=== PATIENT | male | born 1985 | race Caucasian/White ===

== ENCOUNTER 2017-01-27 14:07 | Emergency (ER) | payer OTHER ==
[2017-01-27] MEDS ORDERED: KETOROLAC 15 MG/1 ML SDV IVP ONE (14:21)
[2017-01-27] MEDS ORDERED: LIDOCAINE 5% 1 EA PATCH TD ONE (14:21)
[2017-01-27] MEDS ORDERED: ACETAMINOPHEN 500 MG TAB PO ONE (14:21)
--- NOTE | 2017-01-27 14:25 | EDPHY ---
H & P Stated Complaint: Low back injury, low back pain and down L leg Time Seen by Provider: 01/27/17 14:14 HPI/ROS: CHIEF COMPLAINT: Acute low back pain HISTORY OF PRESENT ILLNESS: 31-year-old male with prior history of multilevel lumbar fusion the teenager secondary to traumatic football injury, drove to the ER at complaining of acute low back pain with left lower extremity radiculopathy after he was lifting a heavy auger at work and felt immediate bilateral paraspinous lumbar back pain with radiculopathy in the left lower extremity as well as a "pop" sensation. No incontinence. No paresthesia. No saddle anesthesia. No no footdrop. No direct trauma or fall. No abdominal pain. PRIMARY CARE PROVIDER: Worker's compensation REVIEW OF SYSTEMS: A ten point review of systems was performed and is negative with the exception of the items mentioned in the HPI PAST MEDICAL & SURGICAL HISTORY: multilevel lumbar fusion as a teenager secondary to traumatic football injury SOCIAL HISTORY: works in [employer] PHYSICAL EXAM (Prior to examination, patient consented to physical exam, hands were washed and my usual and customary physical exam procedures followed) 1) GENERAL: Well-developed, well-nourished, alert and oriented. Appears uncomfortable . 2) HEAD: Normocephalic, atraumatic 3) HEENT: Pupils equal, round, reactive to light bilaterally. Sclera anicteric. 4) NECK: Full range of motion, no meningeal signs. 5) LUNGS: Clear auscultation bilaterally, no wheezes, no rhonchi, no retractions. 6) HEART: Regular rate and rhythm, no murmur, no heave, no gallop. 7) ABDOMEN: No guarding, no rebound, no focal tenderness, negative McBurney's, negative Garcia's, negative Rovsing's, negative peritoneal sign, 8) MUSCULOSKELETAL: Moving all extremities, no focal areas of tenderness, no obvious trauma. No peripheral edema or discoloration. 9) BACK: tender to palpation bilateral paraspinous paraspinous muscle. No CVA tenderness, no midline vertebral tenderness, no fluctuance, no step-off, no obvious trauma, no visual or palpable abnormality. Patella, Achilles reflexes intact to bilateral strength 5/5 10) SKIN: No rash, no petechiae. DIFFERENTIAL DIAGNOSIS: In no particular order, including but not limited to, fracture, sprain/strain, cauda equina, spinal infectious etiology. - Personal History Current Tetanus/Diphtheria Vaccine: Unsure Current Tetanus Diphtheria and Acellular Pertussis (TDAP): Unsure - Medical/Surgical History Hx Asthma: No Hx Chronic Respiratory Disease: No Hx Diabetes: No Hx Cardiac Disease: No Hx Renal Disease: No Hx Cirrhosis: No Hx Alcoholism: No Hx HIV/AIDS: No Hx Splenectomy or Spleen Trauma: No Other PMH: Low back surgery and fusion - Social History Smoking Status: Never smoked Constitutional: Initial Vital Signs Temperature (C) 36.6 C 01/27/17 14:10 Heart Rate 72 01/27/17 14:10 Respiratory Rate 16 01/27/17 14:10 Blood Pressure 119/66 01/27/17 14:10 O2 Sat (%) 92 01/27/17 14:10 O2 Delivery Mode Room Air Allergies/Adverse Reactions: No Known Allergies Allergy (Verified 01/27/17 14:16) Home Medications: Medication Instructions Recorded Cyclobenzaprine [Flexeril 10 MG 10 mg PO TID #15 tab 01/27/17 (RX)] methylPREDNISolone [Medrol Dose 4 mg PO DAILY #1 ea 01/27/17 [facility]] Medical Decision Making - Diagnostics Imaging Results: Imaging Impressions Lumbar Spine X-Ray 01/27/17 14:25 Impression: 1. Pedicle screws at L4, L5, and S1 segments without radiopaque paraspinal tri. 2. Mild disk space narrowing at L4-L5 along with facet hypertrophy at L5-S1. Images reviewed by myself ED Course/Re-evaluation: MEDICAL DECISION MAKING 2:24 p.m.: This patient appears uncomfortable. He drove himself to the ER and is planning on driving upon leaving as he has to make a flight this evening. Plan will be nonnarcotic nonsedating medication, re-evaluation. Will obtain x- ray given his history of hardware in his lumbar spine and sensation of a "pop" when he was lifting a heavy object. At this time Lower index of suspicion for cauda equina, epidural abscess, epidural hematoma, lumbar myositis, diskitis, as the patient is neurologically intact in the lower extremities, has patella and Achilles reflexes intact and equal bilaterally, has no neurologic deficits, no incontinence, no retention, no midline pain, no fluctuance, afebrile, no flulike symptoms. Pain may be secondary to muscular strain, may be secondary to discogenic etiology. At this point I do not identify definitive indication for emergent MRI, however patient may necessitate this on an outpatient basis. 3:24 p.m.: Re-evaluation, complaining of continued pain however now he states that he is able to get a ride home. 4:04 p.m.: Patient received IV benzodiazepine, ketamine, feeling significant improvement in his symptoms. He would like to be discharged. I have recommend he follow up with worker's compensation provider on Monday (today is Monday). He will be discharged with Flexeril, Medrol Dosepak, usual and customary back precautions and instructions. - Data Points Medications Given: Miscellaneous Information (Patch Removal) 1 ea TD DAILY21 JULIANNA Stop: 07/26/17 20:59 Last Admin: 01/27/17 14:46 Dose: 1 ea Discontinued Medications Acetaminophen (Tylenol) 1,000 mg PO EDNOW ONE Stop: 01/27/17 14:22 Last Admin: 01/27/17 14:40 Dose: 1,000 mg Dexamethasone (Decadron Injection) 8 mg IVP EDNOW ONE Stop: 01/27/17 15:29 Last Admin: 01/27/17 15:40 Dose: 8 mg Diazepam (Valium Injection) 5 mg IVP EDNOW ONE Stop: 01/27/17 15:29 Last Admin: 01/27/17 15:41 Dose: 5 mg Ketamine HCl (Ketamine) 16.3 mg 0.2 mg/kg (16.3 mg) IVP EDNOW ONE Stop: 01/27/17 15:29 Last Admin: 01/27/17 15:43 Dose: 16.3 mg Ketorolac Tromethamine (Toradol) 15 mg IVP EDNOW ONE Stop: 01/27/17 14:22 Last Admin: 01/27/17 14:41 Dose: 15 mg Lidocaine (Lidoderm 5%) 1 ea TD EDNOW ONE Stop: 01/27/17 14:22 Last Admin: 01/27/17 14:43 Dose: 1 ea Departure - Departure Disposition: Home, Routine, Self-Care Clinical Impression: Acute low back pain Qualifiers: Back pain laterality: bilateral Sciatica presence: with sciatica Sciatica laterality: sciatica of left side Qualified Code(s): M54.42 - Lumbago with sciatica, left side Condition: Good Instructions: Acute Low Back Pain (ED) Additional Instructions: Seek medical attention if you develop new or worsening pain, if you develop bladder or bowel dysfunction, numbness around your perineum, foot drop, or any other symptoms that concern you. Referrals: Arnoldo Auguste MD [Medical Doctor] - 5-7 days, call for appt. Follow-up, with your work comp provider on Monday [Other] - As per Instructions Stand Alone Forms: Work Excuse, Work Comp Follow Up, Statement of Treatment, Airline Excuse, Work Limited Duty Prescriptions: Cyclobenzaprine [Flexeril 10 MG (RX)] 10 mg PO TID #15 tab methylPREDNISolone [Medrol Dose [place]] 4 mg PO DAILY #1 ea
[2017-01-27] MEDS ORDERED: DEXAMETHASONE 4 MG/ML VIAL IVP ONE (15:28)
[2017-01-27] MEDS ORDERED: DIAZEPAM 10 MG/2 ML SYR IVP ONE (15:28)
[2017-01-27] MEDS ORDERED: KETAMINE 100 MG/10 ML SYR IVP ONE (15:28)
[2017-01-27 16:14] VITALS: RESP 14
[2017-01-27 17:59] VITALS: BP 114/64; PULSE 65; TEMP 97.7; O2SAT 93
[2017-01-27] MEDS ORDERED: PATCH REMOVAL 1 EA PATCH TD SCH (21:00)
== END 2017-01-27 17:56 | disposition home or self-care (01) ==
DX: M54.42 Lumbago with sciatica, left side (principal)
CPT/HCPCS: 96374; J1100; J1885

== ENCOUNTER 2017-01-30 12:23 | Emergency (ER) | payer OTHER ==
[2017-01-30 12:31] VITALS: RESP 18
--- NOTE | 2017-01-30 13:18 | EDPHY ---
H & P Time Seen by Provider: 01/30/17 13:15 HPI/ROS: CHIEF COMPLAINT: Low back pain HISTORY OF PRESENT ILLNESS: 31-year-old male with prior multilevel lumbar fusion presents with persistent back pain. He he was originally seen in this emergency department on 01/27/2017 after lifting a heavy object and feeling a pop in his back. X-rays were unremarkable. He placed on Medrol Dosepak and Flexeril. He continues to have moderate pain, and is unable sleep well because of the pain. The pain radiates down his left leg. He has chronic numbness in the right anterior thigh; no new numbness or weakness. He does not a follow-up appointment yet. REVIEW OF SYSTEMS: Constitutional: No fever, no chills Eyes: No visual changes ENT: No sore throat Respiratory: No cough, no shortness of breath Cardiac: No chest pain Gastrointestinal: No nausea, no vomiting, no abdominal pain Genitourinary: No hematuria, no dysuria Musculoskeletal: No leg pain or swelling Skin: No rash Neurological: No headache, no numbness, no weakness Psychiatric: No depression Past Medical/Surgical History: Lumbar fusion Social History: Moved to [place] 6 months ago, no PCP Works in [employer] Smoking Status: Never smoked Physical Exam: General Appearance: Alert, pleasant Eyes: Pupils equal and round, no conjunctival pallor ENT, Mouth: Mucous membranes moist Neck: Normal inspection Respiratory: Lungs are clear to auscultation Cardiovascular: Regular rate and rhythm Gastrointestinal: Abdomen is soft and nontender Back: Surgical scars present over the lumbar area, tender over the left paraspinous lumbar area and the right SI area Neurological: A&O, motor 5/5, including dorsiflexion of the 1st toe and ankle, normal gait Skin: Warm and dry, no rash Extremities: normal inspection Psychiatric: Mood and affect normal Constitutional: Initial Vital Signs Temperature (C) 36.5 C 01/30/17 12:27 Heart Rate 70 01/30/17 12:27 Respiratory Rate 18 01/30/17 12:27 Blood Pressure 113/76 01/30/17 12:27 O2 Sat (%) 99 01/30/17 12:27 O2 Delivery Mode Room Air Allergies/Adverse Reactions: No Known Allergies Allergy (Verified 01/30/17 12:25) Home Medications: Medication Instructions Recorded Cyclobenzaprine [Flexeril 10 MG 10 mg PO TID #15 tab 01/27/17 (RX)] methylPREDNISolone [Medrol Dose 4 mg PO DAILY #1 ea 01/27/17 [place]] oxyCODONE/APAP 5/325 [Percocet 1 tab PO Q4 PRN #15 tab 01/30/17 5/325 (*)] Medical Decision Making ED Course/Re-evaluation: Lidocaine patch placed. I looked up this pt in the COPD; no previous prescriptions. Given no relief with Flexeril and Medrol Dosepak, will write a short prescription for Percocet. He will also use Lidoderm patches. f/u neurosurgery. No indication for MRI today. Differential Diagnosis: Differential diagnosis for back pain includes muscular pain, herniated disc, epidural abscess, discitis, spine fracture, intra-abdominal causes and urinary tract infection. Departure - Departure Disposition: Home, Routine, Self-Care Clinical Impression: Low back pain Qualifiers: Chronicity: acute Back pain laterality: bilateral Sciatica presence: with sciatica Sciatica laterality: sciatica of left side Qualified Code(s): M54.42 - Lumbago with sciatica, left side Condition: Good Instructions: Low Back Strain (ED), Lumbar Radiculopathy (ED) Additional Instructions: Continue taking a Medrol Dosepak. Keep a lidocaine patch on your back over the painful area. Use Flexeril as needed for muscle spasm. Take Percocet as needed for severe pain. Call Dr. Auguste to make an appointment. Referrals: Arnoldo Auguste MD [Medical Doctor] - As per Instructions Prescriptions: oxyCODONE/APAP 5/325 [Percocet 5/325 (*)] 1 tab PO Q4 PRN #15 tab PRN Reason: pain
[2017-01-30] MEDS ORDERED: LIDOCAINE 5% 1 EA PATCH TD ONE (13:37)
[2017-01-30 13:54] VITALS: BP 110/75; PULSE 78; TEMP 98.1; O2SAT 98
[2017-01-30] MEDS ORDERED: PATCH REMOVAL 1 EA PATCH TD SCH (21:00)
== END 2017-01-30 13:52 | disposition home or self-care (01) ==
DX: M54.42 Lumbago with sciatica, left side (principal)

== ENCOUNTER 2017-04-04 10:22 | Emergency (ER) | payer OTHER ==
[2017-04-04 10:30] VITALS: TEMP 97.5
[2017-04-04] MEDS ORDERED: DIAZEPAM 10 MG/2 ML SYR ONE (11:48)
[2017-04-04] MEDS ORDERED: KETOROLAC 30 MG/1 ML SDV IVP ONE (11:50)
[2017-04-04] MEDS ORDERED: DIAZEPAM 10 MG/2 ML SYR IVP ONE ×2 (11:50→13:44)
[2017-04-04] MEDS ORDERED: KETOROLAC 15 MG/1 ML SDV ONE (12:00)
--- NOTE | 2017-04-04 14:00 | EDPHY ---
H & P Time Seen by Provider: 04/04/17 11:27 HPI/ROS: CHIEF COMPLAINT: Back pain HISTORY OF PRESENT ILLNESS: 32-year-old male presents to the emergency department with low back pain. Patient has a history of chronic back pain. Patient states that in January of this past year he had a work related injury lifting a piece of heavy equipment. He had an MRI of his lumbar spine recently and he has herniated disc. He was followed by a neurosurgeon, Dr. Lora, and was scheduled to have injection his back, however his pain improved. The patient has been on light duty since that time. He was at work today and was sweeping with a broom and felt some pain in his lower back which is now radiating down his left leg. He does not feel any weakness in his left leg. He denies bowel or bladder incontinence. He complains of severe pain in his low back especially with movement. No paresthesias in upper or lower extremities. REVIEW OF SYSTEMS: Constitutional: No fever, no chills. Eyes: No double or blurry vision. ENT: No sore throat. Respiratory: No cough, no shortness of breath. Cardiac: No chest pain. Gastrointestinal: No abdominal pain, vomiting or diarrhea. Genitourinary: No dysuria. Musculoskeletal: Back pain as above. No neck pain. Skin: No rashes. Neurological: No headache. Past Medical/Surgical History: Chronic back pain, lumbar spine fusion Social History: , works in [employer] Smoking Status: Never smoked Physical Exam: General Appearance: Alert, moderate distress. Eyes: Pupils equal and round. Extraocular motions are all intact. ENT: Mouth: Mucous membranes moist. Respiratory: No wheezing, rhonchi, or rales, lungs are clear to auscultation. Cardiovascular: Regular rate and rhythm. Gastrointestinal: Abdomen is soft and nontender, no masses, no rebound or guarding, bowel sounds normal. Neurological: Alert and oriented x 3, cranial nerves II through XII grossly intact Skin: Warm and dry, no rashes. Musculoskeletal: Nontender to palpate along the cervical, thoracic or lumbar spine. Neck is supple. Well-healed surgical incisions on both the left and the right side of the lumbar spine. No redness or signs of infection. Extremities: Straight leg raise is negative bilaterally. Full flexion and extension of his knees to his chest without difficulty. Reflexes are 2+ and equal for lower extremities bilaterally. Normal and equal strength of lower extremities bilaterally. Psychiatric: Patient is oriented X 3, there is no agitation. Constitutional: Initial Vital Signs Temperature (C) 36.4 C 04/04/17 10:27 Heart Rate 79 04/04/17 10:27 Respiratory Rate 18 04/04/17 10:27 Blood Pressure 124/79 H 04/04/17 10:27 O2 Sat (%) 100 04/04/17 10:27 O2 Delivery Mode Room Air Allergies/Adverse Reactions: No Known Allergies Allergy (Verified 04/04/17 10:24) Home Medications: Medication Instructions Recorded Diazepam [Valium] 5 mg PO TIDPRN PRN #15 tab 04/04/17 Lidocaine 5% [Lidoderm 5% Patch 1 ea TD DAILY #5 patch 04/04/17 (*)] methylPREDNISolone [Medrol Dose 1 each PO AD #1 ea 04/04/17 [place]] oxyCODONE/APAP 5/325 [Percocet 1 - 2 tab PO Q4-6PRN PRN #15 tab 04/04/17 5/325] Medical Decision Making ED Course/Re-evaluation: 32-year-old male presents to the emergency department with low back pain. The patient has no focal neurologic findings. His reflexes are 2+ and equal for lower extremities bilaterally. No bowel or bladder incontinence. Patient had IV established and was given 30 mg of IV Toradol and 5 mg of IV Valium. He was feeling better but then the pain returned. He was given additional 5 mg IV Valium. I spoke with the patient and his at bedside a great length. I do not think repeat MRI of the lumbar spine is necessary. Patient has a normal neurologic examination. The patient will be treated with oral Valium, oral Percocet, Medrol Dosepak, and Lidoderm patches. He was comfortable being discharged home. I encouraged close follow up with his neurosurgeon, Dr. Lora. Differential Diagnosis: Back pain including but not limited to muscular pain, herniated disc, spine fracture, intra-abdominal causes and urinary tract infection. - Data Points Medications Given: Discontinued Medications Diazepam (Valium Injection) 5 mg IVP EDNOW ONE Stop: 04/04/17 11:51 Last Admin: 04/04/17 11:58 Dose: 5 mg Diazepam (Valium Injection) 5 mg IVP EDNOW ONE Stop: 04/04/17 13:45 Last Admin: 04/04/17 13:52 Dose: 5 mg Ibuprofen (Motrin) 600 mg PO EDNOW ONE Stop: 04/04/17 15:02 Last Admin: 04/04/17 15:03 Dose: 600 mg Ketorolac Tromethamine (Toradol) 30 mg IVP EDNOW ONE Stop: 04/04/17 11:51 Last Admin: 04/04/17 12:04 Dose: 30 mg Lidocaine (Lidoderm 5%) 1 ea TD EDNOW ONE Stop: 04/04/17 14:48 Last Admin: 04/04/17 15:03 Dose: 1 ea Oxycodone/Acetaminophen (Percocet 5/325) 2 tab PO EDNOW ONE Stop: 04/04/17 15:02 Last Admin: 04/04/17 15:03 Dose: 2 tab Departure - Departure Disposition: Home, Routine, Self-Care Clinical Impression: Low back pain Qualifiers: Chronicity: acute Back pain laterality: left Sciatica presence: with sciatica Sciatica laterality: sciatica of left side Qualified Code(s): M54.42 - Lumbago with sciatica, left side Condition: Good Instructions: Low Back Strain (ED), Acute Low Back Pain (ED) Additional Instructions: Ibuprofen 600mg every 8 hours for pain as directed. Valium as needed for muscular spasm. Percocet for severe pain as directed. Follow-up with neurosurgeon regarding your ongoing back pain. Referrals: Norman Rooney MD [Medical Doctor] - As per Instructions (Neurosurgeon on-call) Stand Alone Forms: Work Excuse Prescriptions: Diazepam [Valium] 5 mg PO TIDPRN PRN #15 tab PRN Reason: P.r.n. spasms Lidocaine 5% [Lidoderm 5% Patch (*)] 1 ea TD DAILY #5 patch methylPREDNISolone [Medrol Dose [place]] 1 each PO AD #1 ea oxyCODONE/APAP 5/325 [Percocet 5/325] 1 - 2 tab PO Q4-6PRN PRN #15 tab PRN Reason: For Moderate To Severe Pain
[2017-04-04] MEDS ORDERED: LIDOCAINE 5% 1 EA PATCH TD ONE (14:47)
[2017-04-04] MEDS ORDERED: OXYCODONE/APAP 5/325 TAB PO ONE (15:01)
[2017-04-04] MEDS ORDERED: IBUPROFEN 600 MG TAB PO ONE (15:01)
[2017-04-04 15:12] VITALS: BP 113/69; PULSE 75; RESP 18; O2SAT 99
== END 2017-04-04 15:12 | disposition home or self-care (01) ==
DX: M54.42 Lumbago with sciatica, left side (principal)
CPT/HCPCS: 96374; J1885